=== PATIENT | male | born 1965 | race Caucasian/White ===

== ENCOUNTER 2023-06-24 18:43 | Emergency (ER) | payer BC, SELFPAY ==
--- NOTE | 2023-06-24 18:44 | ED.EAR ---
HPI - Ear Problem General Chief complaint: Ear Stated complaint: Left Ear Irritation Time Seen by Provider: 06/24/23 18:43 Source: patient Mode of arrival: ambulatory Limitations: no limitations History of Present Illness HPI Narrative: Patient is a 58-year-old male who presents with left ear irritation and decreased hearing for 5 days. Reports he tried to use hydrogen peroxide water solution with no relief. Does use Q-tips and rarely uses ear buds. Denies any drainage from ear. Denies any fever, chills, congestion, sore throat, cough, nausea, vomiting, diarrhea will MD Complaint: ear pain Related Data Home Medications Medication Instructions Recorded Confirmed atorvastatin 80 mg tablet 80 mg PO DAILY 10/12/22 10/12/22 cholecalciferol (vitamin D3) 125 125 mcg PO DAILY 10/12/22 10/12/22 mcg (5,000 unit) capsule levothyroxine 100 mcg capsule 100 mcg PO DAILY 10/12/22 10/12/22 lisinopril 20 mg tablet 20 mg PO DAILY 10/12/22 10/12/22 metoprolol succinate 25 mg 12.5 mg PO DAILY 10/12/22 10/12/22 tablet,extended release 24 hr spironolactone 25 mg tablet 25 mg PO DAILY 10/12/22 10/12/22 Aspirin 06/24/23 ascorbic acid (vitamin C) 06/24/23 nebivolol 5 mg tablet mg 06/24/23 Allergies Allergy/AdvReac Type Severity Reaction Status Date / Time [place] Nut Allergy Unknown Swelling Uncoded 06/24/23 19:25 of Lip/Tongue/Throat Review of Systems Review of Systems: All systems reviewed & are unremarkable except as noted in HPI and below Constitutional: Constitutional: Denies body ache(s), Denies chills, Denies fever(s), Denies headache(s) and Denies malaise Eyes: Eyes: Denies blurry vision, Denies eye discharge and Denies irritation ENT: Reports otalgia, Denies headache(s), Reports hearing loss, Denies nasal congestion, Denies nasal discharge and Denies sore throat Cardiovascular: Cardiovascular: Denies chest pain, Denies edema, Denies palpitations and Denies dyspnea on exertion Respiratory: Respiratory: Denies cough and Denies dyspnea on exertion Gastrointestinal: Gastrointestinal: Denies abdominal pain, Denies diarrhea, Denies nausea and Denies vomiting Musculoskeletal: Musculoskeletal: Denies back pain, Denies arthralgias and Denies muscle weakness Integumentary/Breasts: Skin/Breast: Denies pruritus and Denies rash Neurologic: Denies headache(s) Psychiatric: Psychiatric: Reports no additional psychiatric complaints Endocrine: Endocrine: Denies palpitations PMFSH Past Medical History Medical History History of heart attack History of thyroid disorder Hx of acquired congestive heart failure Hx of congenital heart disease Hx of coronary artery disease Surgical History Surgical History History of right hip replacement Hx of appendectomy Hx of cardiac cath Hx of hernia repair Family History Family History Father Diabetes mellitus Mother Hypertension Heart disease Social History Social History Smoking status: Never smoker Alcohol intake: never Substance use: never Comments At time of signature, agree with nursing past medical, surgical, social and family history. There is no relevant family history pertinent to the presenting complaint? Exam Const: General: cooperative, healthy appearing, no acute distress and well nourished Nutritional Appearance: well nourished Orientation/consciousness: patient oriented x3 Limitations: no limitations HENMT: Head: normal to inspection, normocephalic and atraumatic Ears: hearing grossly normal bilaterally, TM normal on the right, EAC's normal, no periauricular adenopathy and TM abnormal obstructed by cerumen on the left Face/Nose/Sinus: Normal external nose present, Normal nares present, Normal nasal mucous membranes and
[2023-06-24 19:04] VITALS: BP 129/84; PULSE 57; RESP 16; TEMP 36.7; O2SAT 98
== END 2023-06-24 20:00 | disposition home or self-care (01) ==
PROVIDERS: Emergency Provider Nurse Practitioner Family; PCP Internal Medicine
DX: H61.22 Impacted cerumen, left ear (principal); I25.2 Old myocardial infarction; I50.9 Heart failure, unspecified; I25.10 Atherosclerotic heart disease of native coronary artery without angina pectoris; Z79.82 Long term (current) use of aspirin
CPT/HCPCS: 69209; 99212; G0463